=== PATIENT | female | born 1980 | race Caucasian/White ===

== ENCOUNTER 2022-07-11 08:47 | Emergency (ER) | payer BC ==
[2022-07-11] MEDS ORDERED: ACETAMINOPHEN 500 MG TABLET (FP) PO ONE (09:07)
[2022-07-11 09:14] VITALS: RESP 22; BMI 37.0
[2022-07-11] MEDS ORDERED: ACETAMINOPHEN 500 MG TABLET (FP) ONE (09:16)
[2022-07-11 10:43] VITALS: BP 123/78; PULSE 99; TEMP 100.1
== END 2022-07-11 11:10 | disposition home or self-care (01) ==
LOC: JER 08:47
DX: J09.X2 Influenza due to identified novel influenza A virus with other respiratory manifestations (principal)
CPT/HCPCS: 0241U-QW; 99283-25